=== PATIENT | male | born 1975 | race Caucasian/White ===

== ENCOUNTER 2017-03-08 12:56 | Emergency (ER) | payer BC ==
[~2017-03-08] VITALS: Ht 193 cm; Wt 90.9 kg
[2017-03-08 12:58] VITALS: TEMP 97.7
[2017-03-08 13:32] LABS: BASO % 0.4 % (0.0-2.0); EOS # 0.1 (0.0-0.7); EOS % 0.6 % (0-4.0); GRAN % 81.7 % (42.2-75.2); HEMATOCRIT 43.1 % (42.0-52.0); LYMPH # 1.2 (1.2-3.4); LYMPH % 10.8 % (20.0-51.0); MEAN CELL VOLUME 85 fl (80.0-100.0); MEAN CORPUSCULAR HEMOGLOBIN 30 pg (27.0-31.0); MEAN CORPUSCULAR HGB CONC 35 g/dl (33.0-37.0); MEAN PLATELET VOLUME 12.1 fl (7.4-10.4); MONO # 0.7 (0.1-0.6); MONO % 6.2 % (1.7-9.3); PLATELET COUNT 107 K/mm3 (130-400); RED BLOOD COUNT 5.09 M/mm3 (4.20-5.60); REDCELL DISTRIBUTION WIDTH-CV 12.9 % (11.5-14.5); WHITE BLOOD COUNT 11.1 K/mm3 (4.8-10.8)
[2017-03-08 13:35] LABS: ADJUSTED CALCIUM 8.8 mg/dL (8.4-10.2); ALBUMIN 4.2 gm/dL (3.5-5.0); BILIRUBIN,TOTAL 1.3 mg/dL (0.0-1.0); CREATININE, serum 1.03 mg/dL (0.66-1.25); POTASSIUM 3.6 mmol/L (3.4-5.0); TOTAL PROTEIN 7.5 gm/dL (6.4-8.2)
[2017-03-08 14:21] LABS: PH 7 (5-8); SQUAMOUS EPITHELIAL None Seen /hpf; URINE APPEARANCE Clear; URINE BACTERIA None Seen /hpf; URINE BILIRUBIN Negative (NEGATIVE); URINE BLOOD Negative (NEGATIVE); URINE COLOR Yellow; URINE GLUCOSE Negative (NEGATIVE); URINE KETONE Negative (NEGATIVE); URINE RBC 0-2 /hpf; URINE UROBILINOGEN Negative (NEGATIVE)
[2017-03-08] MEDS ORDERED: ZOFRAN 4MG T4 MG/TAB PO (15:49)
[2017-03-08] MEDS ORDERED: PRILOSEC 20MG20 MG PO (15:49)
[2017-03-08] MEDS ORDERED: CLEOCIN HCL300 MG PO (16:49)
[2017-03-08] MEDS ORDERED: FLAGYL500 MG PO (16:49)
[2017-03-08] MEDS ORDERED: NORCO 325 MG-51 TAB PO (16:50)
[2017-03-08 17:10] VITALS: BP 136/78; PULSE 64
== END 2017-03-08 17:12 | disposition home or self-care (01) ==
LOC: COL.ER 12:56
PROVIDERS: Emergency Medicine
DX: R10.13 Epigastric pain (principal); R63.0 Anorexia; R10.811 Right upper quadrant abdominal tenderness
CPT/HCPCS: C9113; J1170; J2405; J2550; J7030; Q9967

== ENCOUNTER → 2017-03-14 | Outpatient (CLI) | payer BC ==
[~2017-03-14] MED LIST: CLEOCIN HCL300 MG PO; FLAGYL500 MG PO; NORCO 325 MG-51 TAB PO; PRILOSEC 20MG20 MG PO; ZOFRAN 4MG T4 MG/TAB PO
== END ==
LOC: COL.RAD 12:07
DX: K81.9 Cholecystitis, unspecified (principal)
CPT/HCPCS: A9537